=== PATIENT | female | born 1960 | race Caucasian/White ===

== ENCOUNTER → 2022-10-08 08:05 | Outpatient (BNVA) | payer OTHER, SELFPAY | PROVIDERS: Family Provider Physician Assistant Medical; Visit Provider Orthopaedic Surgery | DX: M48.062 Spinal stenosis, lumbar region with neurogenic claudication (principal) | CPT/HCPCS: 72110 ==

== ENCOUNTER 2022-10-08 09:00 | Outpatient (CLI) | payer OTHER, SELFPAY ==
[2022-10-08 09:32] LABS: Basophils % 0.3 %; Eosinophils # 0.2 10^3/uL (0.0-0.8); Eosinophils % 1.3 %; Hematocrit 44.4 % (37.0-47.0); Hemoglobin 14.7 g/dL (11.5-15.3); Lymphocytes # 3.6 10^3/uL (0.8-4.8); Lymphocytes % 31.2 %; Mean Corpuscular HGB Conc 33.1 g/dL (30.0-36.0); Mean Corpuscular Hemoglobin 28.7 pg (28.0-34.0); Mean Corpuscular Volume 86.5 fl (81-99); Mean Platelet Volume 9.8 fL (7.4-10.4); Monocytes # 0.9 10^3/uL (0.2-0.9); Monocytes % 8.1 %; Neutrophils # 6.78 10^3/uL (1.8-7.7); Neutrophils % 58.8 %; Nucleated Red Blood Cells % 0 %; Platelet Count 289 10^3/cmm (130-400); Red Blood Count 5.13 10^6/uL (4.1-5.3); Red Cell Distribution Width 13.2 % (12.1-15.1); White Blood Count 11.5 10^3/uL (4.0-10.0)
[2022-10-08 09:55] LABS: Alanine Aminotransferase 14 U/L (0-33); Albumin Level 4.1 g/dL (3.5-5.2); Alkaline Phosphatase 85 U/L (35-105); Anion Gap 13.4 (5-19); Aspartate Amino Transferase 13 U/L (0-32); Blood Urea Nitrogen 17 mg/dL (8-23); Calcium 9.3 mg/dL (8.5-10.5); Carbon Dioxide 27 mmol/L (22-29); Chloride 101 mmol/L (98-107); Glomerular Filtration Rate 101.3 mL/min (90-130); Glucose 126 mg/dL (65-115); Osmolality Calculated 287 mOsm/kg (285-295); Potassium 4.4 mmol/L (3.5-5.1); Sodium 137 mmol/L (136-145); Total Bilirubin 0.2 mg/dL (0.15-1.2); Total Protein 7.1 g/dL (6.6-8.7)
== END 2022-10-08 09:01 | disposition home or self-care (01) ==
LOC: LAB 09:07
PROVIDERS: PCP Family Medicine; Visit Provider Orthopaedic Surgery
DX: Z01.818 Encounter for other preprocedural examination (principal); M48.062 Spinal stenosis, lumbar region with neurogenic claudication
CPT/HCPCS: 36415; 80053; 85025

== ENCOUNTER 2022-10-23 07:08 | Day surgery (SDC) | payer OTHER, SELFPAY ==
[2022-10-21 10:23] VITALS: BMI 33.3
--- NOTE | 2022-10-21 10:47 | ANES.PREANE2 ---
Pre-Anesthetic Assessment Height/Weight: Height 1.73 m Weight 99.337 kg Operation Date: 10/23/22 09:10 Proposed Procedures p LEFT-sided L3/4 L4/5 Lumbar Decompression:[id number](Left) - Andrew Reid, Familial anesthetic complications: none Social No alcohol and No tobacco Exam alert, oriented x 3, clear to auscultation bilaterally and regular rate & rhythm Airway Mallampati: Class II Dentition: chipped (crown on upper L in back) CV/HEM None reported None reported Hepatic None reported GI None reported Metabolic None reported Musc/skel None reported Neuropsych Cerebrovascular Accident (1994 and carotid stent) L arm sometimes doesn't function as well as the Right Anesthetic Plan ASA status: 3 Anesthesia: General Risk of > 500 ml blood loss (7ml/kg in children): No Medications/Allergies Home Medications Medication Instructions Recorded Confirmed Last Taken Type gabapentin 100 mg capsule 100 mg PO DAILY 07/30/22 10/21/22 10/21/22 History indomethacin 50 mg capsule 50 mg PO QID 07/30/22 10/21/22 10/21/22 History tramadol 50 mg tablet 50 mg PO BID PRN Pain 10/08/22 10/21/22 Unknown History Allergies Allergy/AdvReac Type Severity Reaction Status Date / Time Penicillins Allergy Unknown shutting Verified 10/14/22 10:06 down cefaclor [From Ceclor] Allergy hives Verified 10/14/22 10:06 Data Anesthesia Cardiac Studies: No Data to Display
[2022-10-23] VITALS (10 sets, daily range): BP systolic 101–159; BP diastolic 58–93; PULSE 73–97; RESP 15–20; TEMP 30–36.6; O2SAT 92–100
--- NOTE | 2022-10-23 | XR_ITS ---
WS: [id number] Lumbar spine, C-arm fluoroscopy, 10/23/2022 Clinical Data: RENNY PICS Comparison: Lumbar spine, 10/08/2022 Findings: Dr. Reid performed a lumbar decompression. XR/XR lumbar spine 2-3V* [id number] Impression: Lumbar decompression.
[2022-10-23] MEDS: sodium chloride 0.9% 1,000 ML 30 ML IV (07:32)
--- NOTE | 2022-10-23 07:35 | ANES.PAUD2 ---
Pre-Anesthetic Update Pre-Anesthetic Assessment: Date of Surgery/Procedure: 10/23/22 Preop Diagnosis: Lumbar stenosis with neurogenic claudication Proposed Procedure: Operation Date: 10/23/22 08:50 Proposed Procedures p LEFT-sided L3/4 L4/5 Lumbar Decompression:[id number](Left) - Andrew Reid, DO Any changes to Pre-Anesthetic Assessment?: No Last Intake: Intake Last Liquid Date 10/22/22 Last Liquid Time 23:55 Last Solid Date 10/22/22 Last Solid Time 23:55 Vitals: Temperature 97.9 F 10/23/22 07:20 Temperature Source Tympanic 10/23/22 07:20 Pulse Rate 82 10/23/22 07:20 Respiratory Rate 16 10/23/22 07:20 Blood Pressure 159/93 10/23/22 07:20 Blood Pressure Ewa n 115 10/23/22 07:20 Pulse Oximetry 96 10/23/22 07:20 Oxygen Delivery Me thod Room Air 10/23/22 07:20 Exam: Pre-Anes Outpt Exam: alert, oriented x 3, clear to auscultation bilaterally and regular rate & rhythm Cardiac Studies: No Data to Display
--- NOTE | 2022-10-23 08:57 | PC.NURSE ---
Void - patient up to void. requested to sit on the side of the bed. No complaints at present. at bedside. Dr. Reid has visited patient.
--- NOTE | 2022-10-23 09:02 | W.PM.OPSUD ---
Surgery/Procedure H&P Update DATE OF PROCEDURE: October 23, 2022 DATE H&P PERFORMED: 10/08/22 H&P UPDATE INFORMATION: I have reviewed H&P completed within last 30 days, I have examined patient prior to procedure and No changes to prior documentation PREOP DIAGNOSIS: Lumbar stenosis with neurogenic claudication PLANNED PROCEDURE: Operation Date: 10/23/22 08:50 Proposed Procedures p LEFT-sided L3/4 L4/5 Lumbar Decompression:[id number](Left) - Andrew Reid DO
[2022-10-23] MEDS: clindamycin 900 MG/50 ML PREMIX 100 MG IV (09:26)
[2022-10-23] MEDS: lidocaine-epi 1% 20 mL INJ 30 ML INJECTION (09:57)
--- NOTE | 2022-10-23 11:15 | P.OP_ITS ---
Operative Report Date of procedure: October 23, 2022 Pre-op diagnosis: Preop Diagnosis Lumbar stenosis with neurogenic claudication Post-op diagnosis: same Procedure done: 1. L3/4 laminectomy with partial facetectomy 2. L4/5 laminectomy with partial facetectomy Surgeon: Andrew Reid [employer] Machine Adjuster: none Estimated blood loss (mL): 10 Procedure: 1. L3/4 laminectomy with partial facetectomy 2. L4/5 laminectomy with partial facetectomy Patient is brought to the operative suite. After undergoing anesthesia they are placed in the prone position. All areas of impingement are well padded. Patient is then prepped and draped in the normal sterile fashion. A skin incision is made over the L3/4 level. This is confirmed under c-arm guidance. A series of dilators are passed and the tubular retractor is docked on the L3 lamina. A bovie is used to clear the soft tissue off the lamina and the L 3/4 facet joint. A high speed merrick is then used to perform the laminectomy and take down the medial aspect of the L 3/4 facet joint. A kerrison rongeure was then used to take down the remaining lamina and smooth the edge of the laminectomy up to the point where the ligamentum flavum attaches. Attention was then brought to the medial aspect of the facet joint. The remaining medial aspect of the superior and inferior aspect of the facet joint were taken down with the kerrison from the pedicle of L3 to L 4. The facet joint had significant hypertrophy. Attention was then brought to the Ligamentum Flavum. The ligament was taken down from the lamina of L3 to L4 and out medially to the remaining facet joint. The ligament was thick. The dura was then exposed. The dura was in good repair. The L3 nerve was then traced with a curette out the L3/4 foramen and found to be adequately decompressed. The L4 nerve was traced with a curette around the L4 pedicle. The lateral recess was opened with a kerrison helping to further decompress the L4 nerve. Wound is then irrigated copiously with saline and surgiflo is used to stop any bleeding. The tubular retractor is removed and the A skin incision is made over the L4/5 level. This is confirmed under c-arm guidance. A series of dilators are passed and the tubular retractor is docked on the L4 lamina. A bovie is used to clear the soft tissue off the lamina and the L 4/5 facet joint. A high speed merrick is then used to perform the laminectomy and take down the medial aspect of the L 4/5 facet joint. A kerrison rongeure was then used to take down the remaining lamina and smooth the edge of the laminectomy up to the point where the ligamentum flavum attaches. Attention was then brought to the medial aspect of the facet joint. The remaining medial aspect of the superior and inferior aspect of the facet joint were taken down with the kerrison from the pedicle of L4 to L 5. The facet joint had significant hypertrophy. Attention was then brought to the Ligamentum Flavum. The ligament was taken down from the lamina of L4 to L5 and out medially to the remaining facet joint. The ligament was thick. The dura was then exposed. The dura was in good repair. The L4 nerve was then traced with a curette out the L4/5 foramen and found to be adequately decompressed. The L5 nerve was traced with a curette around the L5 pedicle. The lateral recess was opened with a kerrison helping to further decompress the L5 nerve. Wound is then irrigated copiously with saline and surgiflo is used to stop any bleeding. The tubular retractor is removed and the wound is closed with vicryl and monocryl suture. Glue is then used to protect the wound. A sterile dressing is then placed. Patient was then placed in the supine position and transferred to the PACU in stable condition.
[2022-10-23] MEDS: fentaNYL 50 mcg/mL INJ 2mL IVP (11:37)
[2022-10-23] MEDS: HYDROcodone-acetaminophen 5-325 mg Tablet 2 TAB PO (12:12)
--- NOTE | 2022-10-23 16:10 | ANE.PACU2 ---
Inpatient post-anesthesia follow up: Airway intact: Yes Vital signs: Temperature 97.2 F Pulse Rate 73 Respiratory Rate 18 Blood Pressure 120/65 Pulse Oximetry 93 Oxygen Delivery Me thod Nasal Cannula Oxygen Flow Rate 3 Fraction of Inspir ed Oxygen Hydration adequate: Yes Nausea and vomiting: No Pain level: 1 Mental status: Baseline
== END 2022-10-23 12:50 | disposition home or self-care (01) ==
PROVIDERS: PCP Family Medicine; Visit Provider Orthopaedic Surgery
PROC: (CPT 63005; principal; 2022-10-23 08:40)
DX: M48.062 Spinal stenosis, lumbar region with neurogenic claudication (principal); Z86.73 Personal history of transient ischemic attack (TIA), and cerebral infarction without residual deficits
CPT/HCPCS: 63047; 63048; 72100; 76000; J1100; J2405; J2704; J3010; J3490; J7030

== ENCOUNTER → 2023-01-21 08:54 | Outpatient (BNVA) | payer OTHER, SELFPAY | PROVIDERS: PCP Family Medicine; Visit Provider Orthopaedic Surgery | DX: Z47.89 Encounter for other orthopedic aftercare; M53.3 Sacrococcygeal disorders, not elsewhere classified; M51.36 Other intervertebral disc degeneration, lumbar region; M48.061 Spinal stenosis, lumbar region without neurogenic claudication; M41.9 Scoliosis, unspecified | CPT/HCPCS: 72100 ==

== ENCOUNTER 2023-06-01 15:33 | Outpatient (CLI) | payer OTHER, SELFPAY ==
--- NOTE | 2023-06-01 16:00 | MR_ITS ---
WS: [id number] INDICATION: Low back pain with radiation to LEFT hip. TECHNIQUE: MRI of the pelvis without gadolinium enhancement.Coronal T1, coronal STIR, axial T1, axial T2, sagittal T2 imaging COMPARISON: MRI 01/28/2022 FINDINGS: Normal bone marrow signal in the pelvis and sacrum. No sacral insufficiency fractures. 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 Partially visualized postoperative changes lower lumbar spine. Mil d degenerative narrowing RIGHT hip. Advanced degenerative arthritis LEFT hip with [id number] articulation. Diffuse edema in the LEFT fe moral head and neck and adjacent LEFT acetabulum with subchondral cystic change. Flattening of the fe moral head likely due to avascular necrosis. This is new compared to 2021. Small joint effusion with chronic appearing synovial thickening. IMPRESSION: 1. Advanced degenerative arthritis LEFT hip with [id number] articulation and evidence of avascular necrosis. Flattening of the femoral head with subchondral collapse. Associated edema in the adjacent acetabulum. This is progressed compared to 01/28/2022. Findings compatible with avascular necrosis. C hronic infection should be excluded. 2. Small LEFT joint effusion with chronic appearing synovial thickening. 3. Normal bone marrow signal in the bony pelvis and sacrum. No insufficiency fractures. 4. Partially visualized postoperative changes lower lumbar spine.
== END 2023-06-01 15:34 | disposition home or self-care (01) ==
LOC: RAD 15:35
PROVIDERS: PCP Family Medicine; Visit Provider Orthopaedic Surgery
DX: R10.2 Pelvic and perineal pain (principal); M16.12 Unilateral primary osteoarthritis, left hip; M87.9 Osteonecrosis, unspecified; M54.50 Low back pain, unspecified; M25.452 Effusion, left hip; Z98.890 Other specified postprocedural states
CPT/HCPCS: 72195

== ENCOUNTER 2023-06-02 16:26 | Outpatient (CLI) | payer OTHER, SELFPAY ==
--- NOTE | 2023-06-02 16:45 | MR_ITS ---
WS: [id number] MRI LUMBAR SPINE NONCONTRAST TECHNIQUE: Sagittal T1, T2 and STIR imaging. Axial T1 and T2 imaging. CLINICAL INFORMATION: back pain COMPARISON: MRI 01/28/2022 FINDINGS: Mild lumbar curve. No acute compression. Disc space narrowing worse at L1-2. Laminectomy defects L3-L 4 and L4-L5. L1-L2: Mild disc bulging with mild central canal stenosis. Impingement RIGHT subarticular recess. Mil d facet arthropathy. Foramen are patent. L2-L3: Mild annular bulging. Mild central canal stenosis. Moderate facet arthropathy. Foramen are pat ent. L3-L4: Central disc bulging with moderate central canal stenosis and impingement subarticular recess bilaterally. Moderate facet arthropathy. Foramen are patent. L4-L5: Mild annular bulging slightly progressed. Moderate central canal stenosis with impingement tra versing L5 nerve roots. Moderate facet arthropathy. Foramen are patent. L5-S1: Minimal disc bulging. Spinal canal and foramen are patent. Moderate facet arthropathy. Visualized pelvic bony structures: Normal. Paravertebral soft tissues: Normal. Small LEFT renal cyst. Incidental Tarlov cyst in the sacrum. IMPRESSION: 1. Moderate central canal stenosis L3-4 with impingement subarticular recess bilaterally slightly im proved from previous but persistent significant narrowing. LEFT hemilaminectomy. 2. Moderate central canal stenosis L4-5 due to disc bulging with facet arthropathy and impingement o n the traversing L5 nerve roots bilaterally. Laminectomy defects. Central canal stenosis is persisten t 3. Mild central canal stenosis L1-2 with narrowing of the RIGHT subarticular recess. 4. Mild central canal stenosis L2-3. 5. Moderate facet arthropathy L3-L4 L4-L5 and L5-S1.
== END 2023-06-02 16:27 | disposition home or self-care (01) ==
LOC: RAD 16:26
PROVIDERS: PCP Family Medicine; Visit Provider Orthopaedic Surgery
DX: M48.062 Spinal stenosis, lumbar region with neurogenic claudication (principal); M47.817 Spondylosis without myelopathy or radiculopathy, lumbosacral region; Z98.890 Other specified postprocedural states
CPT/HCPCS: 72148

== ENCOUNTER → 2023-06-22 15:19 | Outpatient (BNVA) | payer OTHER, SELFPAY | PROVIDERS: PCP Family Medicine; Visit Provider Orthopaedic Surgery | DX: M25.552 Pain in left hip; Z47.89 Encounter for other orthopedic aftercare | CPT/HCPCS: 73502 ==

== ENCOUNTER → 2023-07-26 15:35 | Outpatient (BNVA) | payer OTHER, SELFPAY | PROVIDERS: PCP Family Medicine; Referring Provider Orthopaedic Surgery; Visit Provider Specialist | DX: Z01.818 Encounter for other preprocedural examination (principal) | CPT/HCPCS: 36415; 80053; 81001; 85025 ==

== ENCOUNTER → 2023-07-27 13:51 | Outpatient (BNVA) | payer OTHER, SELFPAY | PROVIDERS: PCP Family Medicine; Visit Provider Family Medicine | DX: Z01.818 Encounter for other preprocedural examination (principal) | CPT/HCPCS: 87086 ==

== ENCOUNTER 2023-08-03 13:28 | Observation (INO) | payer OTHER, SELFPAY ==
[2023-08-03] VITALS (20 sets, daily range): BP systolic 85–134; BP diastolic 45–94; PULSE 70–98; RESP 16–19; TEMP 36.1–36.9; O2SAT 84–97; BMI 31.9
--- NOTE | 2023-08-03 09:36 | ANES.PREANE2 ---
Pre-Anesthetic Assessment Height/Weight: Height 1.73 m Operation Date: 08/03/23 10:50 Proposed Procedures p Total Hip Arthroplasty(Left) - Rachel Douglas MD Familial anesthetic complications: none Social No alcohol and No tobacco Exam alert, oriented x 3, clear to auscultation bilaterally and regular rate & rhythm Airway Mallampati: Class II Dentition: chipped (crown on upper L in back) CV/HEM None reported None reported Hepatic None reported GI None reported Metabolic None reported Musc/skel None reported Neuropsych Cerebrovascular Accident (1995 and carotid stent) L arm sometimes doesn't function as well as the Right Anesthetic Plan ASA status: 3 Anesthesia: Regional (specify below) Other: Spinal w GA backup Risk of > 500 ml blood loss (7ml/kg in children): Yes, adequate IV access and fluids planned Medications/Allergies Home Medications Medication Instructions Recorded Confirmed Last Taken Type indomethacin 50 mg capsule 50 mg PO QID 07/30/22 08/02/23 07/26/23 History tramadol 50 mg tablet 50 mg PO BID PRN Pain 10/08/22 08/02/23 08/02/23 History methocarbamol 500 mg tablet 500 mg PO TID PRN spasms #60 tabs 10/26/22 08/02/23 Unknown Rx Allergies Allergy/AdvReac Type Severity Reaction Status Date / Time Penicillins Allergy Unknown shutting Verified 08/02/23 12:59 down cefaclor [From Ceclor] Allergy hives Verified 08/02/23 12:59 Data Anesthesia Cardiac Studies: No Data to Display
--- NOTE | 2023-08-03 10:11 | P.HPUD_ITS ---
Surgery/Procedure H&P Update DATE OF PROCEDURE: August 03, 2023 DATE H&P PERFORMED: 07/27/23 H&P UPDATE INFORMATION: I have reviewed H&P completed within last 30 days, I have examined patient prior to procedure, No changes to prior documentation and H&P is in [facility] on date indicated PLANNED PROCEDURE: Operation Date: 08/03/23 10:50 Proposed Procedures p Total Hip Arthroplasty(Left) - Rachel Douglas MD Related Problem List Diagnoses (1) Avascular necrosis of bone of left hip:
[2023-08-03] MEDS: acetaminophen 1,000 MG/100 ML PIGGYBACK 400 MG IV ×3 (10:15→23:49)
[2023-08-03] MEDS: CELEcoxib 200 mg Capsule 400 MG PO (10:17)
[2023-08-03] MEDS: gabapentin 300 mg Capsule PO (10:17)
[2023-08-03] MEDS: sodium chloride 0.9% 1,000 ML 30 ML IV (10:17)
[2023-08-03] MEDS: fentaNYL 50 mcg/mL INJ 2mL IVP ×2 (10:33→15:15)
[2023-08-03] MEDS: vancomycin 1,000 MG in sodium chloride 0.9% 250 ML 250 MG IV ×2 (10:55→16:59)
[2023-08-03] MEDS: tranexamic acid 1,000 mg/10mL SDV 1000 MG (10:59)
[2023-08-03] MEDS: vancomycin 1,000 MG SDV 2000 MG XX (12:02)
--- NOTE | 2023-08-03 13:25 | P.OP_ITS ---
Operative Report Date of procedure: August 03, 2023 Pre-op diagnosis: Severe degenerative osteoarthritis left hip due to avascular necrosis Post-op diagnosis: Severe degenerative osteoarthritis left hip due to avascular necrosis Post-op findings: Severe avascular necrosis left hip with osteophyte formation Procedure done: Left total hip arthroplasty Implants: The [employer] total hip system with a size 52 mm by E alpha code Trident II Tritanium acetabular shell with an MDM liner size 42 mm inner diameter by E alpha code.? A size 5 Accolade II 127? neck angle hip stem with a size 28 mm x - 4 mm femoral head and a advent MDM X3 insert size 28 mm x 42E Specimens removed/disposition: Femoral head, disposed of Surgeon: Rachel Douglas MD Supply Teacher: Amanda Caldwell, nurse practitioner, who services were required for positioning, exposure, manipulation, retraction, and closure Anesthesia: Spinal (With MAC, ASA 3) Estimated blood loss (mL): 25 Tourniquet time (min): 0 (Not utilized) IV fluids (mL): 1,400 Urine output (mL): 100 Complications: None Findings: Significant avascular necrosis of the femoral head with complete collapse. Following placement of the total hip arthroplasty, the patient was stable at 90 degrees of flexion with 80 degrees of internal rotation and 30 degrees of adduction. Additionally, she was stable to toe hang and external rotation. Condition: stable Disposition: PACU (Then return to floor for postoperative rehabilitation and pain management) Brief History: This 63-year-old woman presented to the office on July 26, 2023 with severe left hip pain. The pain had been ongoing for over a year. Prior to presenting to the office, in October 2022, the patient did have lumbosacral spine surgery which did not improve her groin pain. She then had x-rays of the left hip and was referred to sd for evaluation. Imaging at that time demonstrated severe avascular necrosis with complete collapse and obliteration of joint space. She was unable to stand for longer than 5 minutes. At the time of presentation, her pain was 10 of 10. She presented to the clinic using a walker. She had also had an MRI which demonstrated avascular necrosis. After discussion, total hip was recommended, and the patient agreed to that surgical procedure. Consents were signed, and questions were answered. Procedure: Patient was brought to the operating theater.? She was transferred to the operating room table and subsequently administered a spinal anesthesia with MAC, ASA 3.? Following administration of adequate anesthesia, the patient was placed in full lateral position and held in position with a pegboard.? The patient's left lower extremity was then prepped and draped in usual fashion utilizing DuraPrep.? It was draped free. Following prepping and draping, a surgical pause was performed.? At the time of surgical pause, we identified the site and side of surgery.? We also identified the patient and preoperative surgical markings.?The patient's operative leg was compared to the opposite leg as a length comparison.? Confirmation was made of equipment availability.? Additionally, the patient's preoperative IV antibiotic, Ancef 2 g, and TXA administration was confirmed as well.? X-rays were also reviewed. Following the surgical pause, an incision was made centering over the patient's greater trochanter continuing proximally and distally as necessary to allow access to the hip joint.? Dissection continued through skin and soft tissues using a scalpel, and hemostasis was obtained using electrocautery. The tensor fascia bill was identified and incised longitudinally.? Sciatic nerve was identified and protected throughout the surgical procedure.? A Charnley U retractor was placed after the tensor fascia bill had been incised longitudinally, and the sciatic nerve had been identified.? The hip was internally rotated, and the piriformis muscle was identified and tagged. Piriformis muscle along with the remaining short external rotators were then incised from the posterior aspect of the hip joint.? These were retracted posteriorly.? The capsule was entered in a T-type fashion with the edges being tagged, and subsequently the hip was dislocated.? The labrum was excised with further excision accomplished once the femoral head was removed.? Following hip dislocation, a femoral neck osteotomy was accomplished in the appropriate position.? The head was measured, but it was quite deformed.? We then evaluated the acetabulum. The femur was retracted anteriorly.? Soft tissues were retracted, and the labrum was removed.? Labrum was noted to be quite large and deformed. We then began reaming.? Once the femoral head was removed, there was noted to be significant loss of cartilage over the head with the previously noted deformity and cartilage loss within the acetabulum.? There was significant collapse of the femoral head. We reamed the acetabulum to a size 51 to allow for a size 52 acetabular shell. The acetabulum was impacted into position.? The MDM liner was then impacted into position with care being taken to assure it seated appropriately. It was noted that the acetabulum matched the bony anatomy after removal of anterior and posterior osteophytes.? The cup was noted to seat nicely and had good fixation upon impact. Attention was directed to the proximal femur.? The proximal femur was lifted out of the wound.? A canal finder was passed after the box chisel.? The reamer was used to lateralize.? We then began broaching. We broached sequentially and had excellent fit and fill with the size 5 broach. ?Trial reduction was initially accomplished with a size [address]. With a size 5 broach in position, a trial reduction was accomplished with this initially with a +0 mm femoral head, but this was tight and unable to be reduced. Therefore, we decreased the offset of the femoral head to a -4 mm. The -4 mm offset femoral head gave us the stability noted above, and it was noted that lengths appeared restored and appropriate. With the final construct as noted, we had the above-noted stabilities and appropriate leg length. Therefore, trial components were removed after the hip was dislocated.? The size 5 Accolade II 127? neck angle stem was impacted into position without difficulty and onto this was placed a -4 mm x 28 mm femoral head which had been assembled into the MDM insert size 42E.? With a -4 mm femoral head, we had the above-noted stability.? The stem was noted to seat nicely prior to placement of the femoral head.? The wound was copiously irrigated with 20 mL of Betadine and 500 mL of normal saline mixed together.? Subsequently, we suctioned this out and irrigated the wound copiously with lactated Ringer's.? At this time, with all components in appropriate position, the hip was reduced.? Following reduction of the prosthesis once again, we confirmed the stability of the hip.? Leg lengths were also felt to be satisfactory. Being satisfied with the prosthesis, attention was directed to closure.? Closure was accomplished with 0 Vicryl in the capsular tissues.? Piriformis was reattached with 0 Vicryl as well.? Tensor fascia bill was closed with 0 Vicryl in an interrupted fashion.? The subcutaneous tissues were closed with combination of 0 Vicryl and 2-0 Monocryl.? Vancomycin powder and a Gelfoam thrombin mixture was placed into the wound as well.? The skin was closed with a running 3-0 Monocryl followed by Dermabond Cornelius and Fidencio. The patient was placed in an abduction pillow.? Patient was transferred off the operative bed and was brought to the recovery room in a satisfactory condition. She will be discharged to the floor for postoperative rehabilitation and pain management. There were no complications and no specimens. Related Problem List Diagnoses (1) Avascular necrosis of bone of left hip:
--- NOTE | 2023-08-03 13:54 | XR_ITS ---
WS: [id number] Exam: XR pelvis 1-2V* [id number] Date/Time of Exam: 08/03/2023 1:57 PM Reason For Exam: S/P ROGELIO A total hip arthroplasty noted on the LEFT. Postoperative changes in the adjacent soft tissues. IMPRESSION: 1. Left-sided total hip replacement.
[2023-08-03] MEDS: HYDROmorphone 1 mg/mL INJ 1 mL 0.5 MG IVP ×2 (14:27→15:00)
[2023-08-03] MEDS: oxyCODONE 5 mg IR Tab/Cap PO ×2 (16:23→21:26)
[2023-08-03] MEDS: CELEcoxib 200 mg Capsule PO (16:23)
[2023-08-03] MEDS: gabapentin 300 mg Capsule 600 MG PO (16:23)
--- NOTE | 2023-08-03 16:27 | ANE.PACU2 ---
Inpatient post-anesthesia follow up: Airway intact: Yes Vital signs: Temperature 97.2 F Pulse Rate 70 Respiratory Rate 16 Blood Pressure 134/63 Pulse Oximetry 97 Oxygen Delivery Me thod Nasal Cannula Oxygen Flow Rate 2 Fraction of Inspir ed Oxygen Hydration adequate: Yes Nausea and vomiting: No Pain level: 2 Mental status: Baseline
[2023-08-03] MEDS: sennosides-docusate Tablet 2 TAB PO (18:03)
[2023-08-03] MEDS: iron polysaccharide complex 150 mg Capsule PO (18:03)
[2023-08-03] MEDS: tranexamic acid 1,000 MG/100 ML PREMIX 600 MG IV (18:04)
[2023-08-03] MEDS: mupirocin oint 22 gm 1 APPLIC NASAL (18:04)
[2023-08-03] MEDS: methocarbamol 500 mg Tablet PO (23:54)
[2023-08-04] VITALS (8 sets, daily range): BP systolic 103–124; BP diastolic 66–72; PULSE 91–108; RESP 16–18; TEMP 36.8–37; O2SAT 90–98
[2023-08-04] MEDS: oxyCODONE 5 mg IR Tab/Cap PO ×4 (01:30→13:16)
[2023-08-04] MEDS: CELEcoxib 200 mg Capsule PO ×2 (04:33→14:23)
[2023-08-04 06:02] LABS: Basophils % 0.3 %; Eosinophils # 0.2 10^3/uL (0.0-0.8); Eosinophils % 2.4 %; Hematocrit 41.6 % (36-47); Lymphocytes # 1.8 10^3/uL (0.8-4.8); Lymphocytes % 17.5 %; Mean Corpuscular Hemoglobin 28.3 pg (27-33); Mean Corpuscular Volume 88.5 fl (85-98); Mean Platelet Volume 9.6 fL (7.4-10.4); Monocytes # 0.8 10^3/uL (0.2-0.9); Monocytes % 7.4 %; Neutrophils # 7.35 10^3/uL (1.8-7.7); Neutrophils % 72.2 %; Nucleated Red Blood Cells % 0 %; Platelet Count 277 10^3/cmm (157-399); Red Cell Distribution Width 13.3 % (12.1-15.1); White Blood Count 10.17 10^3/uL (3.29-11.43)
[2023-08-04 06:26] LABS: Blood Urea Nitrogen 11 mg/dL (8-23); Calcium 8.5 mg/dL (8.5-10.5); Carbon Dioxide 22 mmol/L (22-29); Chloride 104 mmol/L (98-107); Creatinine Clr Calc Pharmacy 144.1209; Glomerular Filtration Rate 124.6 mL/min (90-130); Glucose 128 mg/dL (65-115); Osmolality Calculated 283 mOsm/kg (285-295); Sodium 136 mmol/L (136-145)
--- NOTE | 2023-08-04 06:28 | PC.NURSE ---
Call made to Greer Caldwell NP to notify her that the pt was noted to have redness to her BLE in the bend of her arms, and on her abd from sternum to pubis. Denies any itching, burning, or pain to these areas. She stated to continue to monitor and her or Dr. Douglas would be by to check on her.
[2023-08-04] MEDS: acetaminophen 1,000 MG/100 ML PIGGYBACK 400 MG IV (08:19)
[2023-08-04] MEDS: iron polysaccharide complex 150 mg Capsule PO (08:19)
[2023-08-04] MEDS: aspirin 325 mg EC Tablet PO (08:19)
[2023-08-04] MEDS: methocarbamol 500 mg Tablet PO ×2 (08:19→14:23)
[2023-08-04] MEDS: sennosides-docusate Tablet 2 TAB PO (08:19)
[2023-08-04] MEDS: chlorhexidine gluconate 0.12% Btl 473 mL 30 ML MUCOUS MEM ×2 (08:20→12:11)
[2023-08-04] MEDS: mupirocin oint 22 gm 1 APPLIC NASAL (08:20)
--- NOTE | 2023-08-04 13:23 | P.DS_ITS ---
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 A size 5 Accolade II 127? neck angle hip stem with a size 28 mm x - 4 mm femoral head and a christianity MDM X3 insert size 28 mm x 42E Reason for Visit Reason for Visit: M16.12 Brief History: This 63-year-old woman presented to the office on July 26, 2023 with severe left hip pain. The pain had been ongoing for over a year. Prior to presenting to the office, in October 2022, the patient did have lumbosacral spine surgery which did not improve her groin pain. She then had x-rays of the left hip and was referred to me for evaluation. Imaging at that time demonstrated severe avascular necrosis with complete collapse and obliteration of joint space. She was unable to stand for longer than 5 minutes. At the time of presentation, her pain was 10 of 10. She presented to the clinic using a walker. She had also had an MRI which demonstrated avascular necrosis. After discussion, total hip was recommended, and the patient agreed to that surgical procedure. Consents were signed, and questions were answered. Hospital Course Hospital Course This 63-year-old woman was admitted under observation status following same-day surgery for left total hip arthroplasty. She had pain control issues overnight, however, we were able to get her pain under control by the first postoperative day. She worked with physical therapy and was deemed safe for discharge to home. Therefore, arrangements were made for discharge to home with home health. At the time of discharge, she had no evidence of DVT. She was neurologically intact. Physical Exam Const: COMMON NORMALS: no acute distress, average body habitus, patient orie nted x3, no limitations, healthy appearing, alert and well nourished GENERAL APPEARANCE: cooperative; not anxious and not combative ORIENTATION/CONSCIOUSNESS: Yes awake, Yes oriented to person, Yes oriented to place and Yes oriented to time HENMT: COMMON NORMALS: normocephalic and atraumatic HEAD & SCALP: normocephalic and atraumatic Eye: GENERAL EYE: appearance normal, both eyes and all related structures EYELID: eyelids normal Chest: COMMONS NORMALS: normal inspection of the chest Resp: COMMON NORMALS: normal respiratory effort EFFORT & INSPECTION: Yes able to speak in complete sentences and Yes symmetric chest movement Extremity: LEFT LOWER EXTREMITY: Yes hip joint (No significant swelling or ecchymosis) Left hip: Yes ROM (Not evaluated) and Yes neurovascular exam (Intact distally) Neuro: COMMON NORMALS: patient oriented x3 SENSORIUM/ORIENTATION: Yes alert, Yes oriented to person, Yes oriented to place and Yes oriented to time SPEECH: speech normal GAIT: Yes Normal gait present Psych: ATTITUDE: Yes calm and Yes engaged ACTIVITY/MOTOR BEHAVIOR: Yes appropriate eye contact ATTENTION/CONCENTRATION: Yes attention grossly intact MEMORY/COGNITION: Yes memory grossly intact Skin: COMMON NORMALS: no rashes or lesions noted and turgor normal; negative for no jaundice GENERAL SKIN EXAM: no rashes or lesions noted, turgor normal and no jaundice Urinary Catheter Management: Martel: Cath Placed During This Visit: yes Reason for Continuing Indwelling Catheter: Perioperative Use in Selected Surgeries Urinary Catheter Date of Insertion: 08/03/23 Urinary Catheter Time of Insertion: 11:15 Discharge Data Studies Completed and Pending Completed Studies During Hospitalization Category Date Time Status XR pelvis 1-2V* [id number] Routine Exams 08/03/23 13:54 Completed Pending at discharge Category Date Time Status Complete Blood Count w/Auto AM LABS Lab 08/05/23 04:00 Ordered Complete Blood Count w/Auto AM LABS Lab 08/06/23 04:00 Ordered Laboratory Results WBC 10.17 10^3/uL (3.29-11.43) 08/04/23 05:30 RBC 4.70 10^6/uL (3.85-5.65) 08/04/23 05:30 Hgb 13.30 g/dL (11.27-16.99) 08/04/23 05:30 Hct 41.6 % (36-47) 08/04/23 05:30 MCV 88.5 fl (85-98) 08/04/23 05:30 MCH 28.3 pg (27-33) 08/04/23 05:30 MCHC 32.0 g/dL (30-55) 08/04/23 05:30 RDW 13.3 % (12.1-15.1) 08/04/23 05:30 Plt Count 277 10^3/cmm (157-399) 08/04/23 05:30 MPV 9.6 fL (7.4-10.4) 08/04/23 05:30 Neut % (Auto) 72.2 % 08/04/23 05:30 Lymph % (Auto) 17.5 % 08/04/23 05:30 [place] % (Auto) 7.4 % 08/04/23 05:30 Eos % (Auto) 2.4 % 08/04/23 05:30 Baso % (Auto) 0.3 % 08/04/23 05:30 Neut # (Auto) 7.35 10^3/uL (1.8-7.7) 08/04/23 05:30 Lymph # (Auto) 1.8 10^3/uL (0.8-4.8) 08/04/23 05:30 [place] # (Auto) 0.8 10^3/uL (0.2-0.9) 08/04/23 05:30 Eos # (Auto) 0.2 10^3/uL (0.0-0.8) 08/04/23 05:30 Baso # (Auto) 0.0 10^3/uL (0.0-0.1) 08/04/23 05:30 Nucleated RBC % (auto) 0 % 08/04/23 05:30 Nucleated RBCs # 0.0 /100WBC 08/04/23 05:30 Sodium 136 mmol/L (136-145) 08/04/23 05:30 Potassium 4.0 mmol/L (3.5-5.1) 08/04/23 05:30 Chloride 104 mmol/L (98-107) 08/04/23 05:30 Carbon Dioxide 22 mmol/L (22-29) 08/04/23 05:30 Anion Gap 14.0 (5-19) 08/04/23 05:30 BUN 11 mg/dL (8-23) 08/04/23 05:30 Creatinine 0.5 mg/dL (0.5-0.9) 08/04/23 05:30 GFR Calculation 124.6 mL/min (90-130) 08/04/23 05:30 Glucose 128 mg/dL (65-115) H 08/04/23 05:30 Calculated Osmolality 283 mOsm/kg (285-295) L 08/04/23 05:30 Calcium 8.5 mg/dL (8.5-10.5) 08/04/23 05:30 Vitals Last Vital Signs Temp 98.3 F 08/04/23 11:32 Pulse 91 08/04/23 11:32 Resp 18 08/04/23 13:16 BP 103/68 08/04/23 11:32 Pulse Ox 98 08/04/23 13:16 O2 Del Method Room Air 08/04/23 11:32 O2 Flow Rate 1 08/04/23 09:07 Discharge Plan Discharge Patient Disposition: Home Health Service Condition: Stable Prescriptions: New oxycodone 10 mg tablet 10 mg PO Q4H PRN (Reason: Moderate Pain) 7 Days Qty: 30 0RF aspirin 81 mg capsule 81 mg PO DAILY 30 Days Qty: 0 0RF acetaminophen 500 mg Tablet 1,000 mg PO Q8H 15 Days Qty: 0 0RF Continued indomethacin 50 mg capsule 50 mg PO QID Rx Instructions: administer with food or milk tramadol 50 mg tablet 50 mg PO BID PRN (Reason: Pain) methocarbamol 500 mg tablet 500 mg PO TID PRN (Reason: spasms) Qty: 60 0RF Discharge Orders: Discharge Order (Routine); Ordered 08/04/23 Ordered By: Rachel Douglas Referrals: Rachel Douglas MD [Physician] - 08/16/23 2:45 pm Marija Carlisle MD [Primary Care Provider] - 08/10/23 10:30 am Discharge Diet: Advance as tolerated and Usual diet Discharge Activity: Increase activity as tolerated, Limit activity as instructed, Use walker/crutches as instructed and As per PT/OT instructions Patient Instructions: Aspirin (By mouth), Oxycodone, Rapid Release (By mouth), Total Hip Replacement (GEN), Joint Replacement Stoplight, Opioid Safety Activity Restrictions/Additional Instructions: Posterior hip precautions. Maintain current dressing in place until it peels off on its own. You may shower. Weightbearing as tolerated. Physical therapy for strengthening, gait training, and ambulation. Discharge Attestations Time Spent in Discharge Care*: greater than 30 min Specific Discharge Activities: educating patient, documenting/other paperwork and evaluating patient/reviewing data Quality Metrics Clinical Quality Measures [ No reported AMI, CVA or VTE this stay] Coding Level of Care Code Acute Code for [facility] Fwd Diagnoses Avascular necrosis of bone of left hip M87.052 Status post total hip replacement, left Z96.642
== END 2023-08-04 14:31 | disposition home health service (06) ==
LOC: MEDSURG 13:29
PROVIDERS: Nurse Practitioner; Admitting Provider Specialist; PCP Family Medicine; Visit Provider Specialist
PROC: (CPT 27130; principal; 2023-08-03 10:20)
DX: M16.12 Unilateral primary osteoarthritis, left hip (principal); M87.052 Idiopathic aseptic necrosis of left femur; F17.200 Nicotine dependence, unspecified, uncomplicated; Z95.5 Presence of coronary angioplasty implant and graft; Z86.73 Personal history of transient ischemic attack (TIA), and cerebral infarction without residual deficits
CPT/HCPCS: 27130; 36415; 51702; 72170; 80048; 85025; 97116; 97161; 97166; 97530; C1776; G0378; J0131; J1170; J2250; J2704; J3010; J3370; J7030; J7050

== ENCOUNTER → 2023-08-16 14:57 | Outpatient (BNVA) | payer OTHER, SELFPAY | PROVIDERS: PCP Family Medicine; Visit Provider Nurse Practitioner | DX: Z96.642 Presence of left artificial hip joint (principal); M87.052 Idiopathic aseptic necrosis of left femur | CPT/HCPCS: 73502 ==

== ENCOUNTER → 2023-09-22 14:18 | Outpatient (BNVA) | payer OTHER, SELFPAY | PROVIDERS: PCP Family Medicine; Visit Provider Specialist | DX: Z96.642 Presence of left artificial hip joint (principal); M87.052 Idiopathic aseptic necrosis of left femur | CPT/HCPCS: 73502 ==

== ENCOUNTER → 2024-01-24 13:14 | Outpatient (BNVA) | payer OTHER, SELFPAY | PROVIDERS: PCP Family Medicine; Visit Provider Specialist | DX: Z96.642 Presence of left artificial hip joint (principal) | CPT/HCPCS: 73502 ==

== ENCOUNTER → 2024-06-15 14:10 | Outpatient (BNVA) | payer OTHER, SELFPAY | PROVIDERS: PCP Family Medicine; Visit Provider Orthopaedic Surgery | DX: M54.9 Dorsalgia, unspecified (principal) | CPT/HCPCS: 72110 ==

== ENCOUNTER → 2024-07-31 10:24 | Outpatient (BNVA) | payer OTHER, SELFPAY | PROVIDERS: PCP Family Medicine; Visit Provider Specialist | DX: Z96.642 Presence of left artificial hip joint (principal); M25.551 Pain in right hip; M87.052 Idiopathic aseptic necrosis of left femur | CPT/HCPCS: 73502 ==